=== PATIENT | male | born 1975 | race Caucasian/White ===

== ENCOUNTER 2020-02-17 03:54 | Emergency (ER) | payer OTHER | END 2020-02-17 06:13 | disposition other institution (70) | LOC: ED 03:54 | DX: Z02.89 Encounter for other administrative examinations (principal) ==

== ENCOUNTER 2020-02-17 03:54 | Emergency (ER) | payer SELFPAY ==
[~2020-02-17] VITALS: Ht 165.1 cm; Wt 90.7 kg
[2020-02-17 04:04] VITALS: Ht 165.1 cm; Wt 90.7 kg
[2020-02-17 06:13] VITALS: BP 137/86
== END 2020-02-17 06:13 | disposition other institution (70) ==
LOC: ED 03:54
DX: I16.0 Hypertensive urgency (principal); E11.9 Type 2 diabetes mellitus without complications